=== PATIENT | male | born 1990 | race Caucasian/White ===

== ENCOUNTER 2018-02-01 10:56 | Emergency (ER) | payer OTHER ==
[2018-02-01] MEDS ORDERED: ANUSOL HC CREAM 30GM TOP (12:15)
[2018-02-01] MEDS: HYDROCORTISONE 2.5% 20GM OINTMENT TOP (12:26)
== END 2018-02-01 12:36 | disposition left against medical advice (07) ==
LOC: M ED 10:56
DX: R07.89 Other chest pain (principal); T50.B15A Adverse effect of smallpox vaccines, initial encounter; L29.9 Pruritus, unspecified
CPT/HCPCS: 99281

== ENCOUNTER 2018-06-15 18:18 | Emergency (ER) | payer OTHER ==
[2018-06-15] MEDS ORDERED: ACETAMINOPHEN 325 MG TAB PO ONE (19:30)
--- NOTE | 2018-06-15 19:33 | REP ---
Chest x-ray: Two views. History: Shortness of breath. Comparison study: No comparison study. Findings: The lungs are well inflated and free of infiltrate. The pleural angles are sharp. The heart size is normal. Pulmonary vasculature is not increased. No significant bony abnormality is seen. EKG monitoring electrodes are seen. Impression: Negative chest x-ray. Electronically Signed by Radames Teresa MD 06/15/2018 07:37 P
[2018-06-15] MEDS ORDERED: SILVER SULFADIAZINE 1% CR 50 GM JAR TOP ONE (20:00)
[2018-06-15 20:15] VITALS: BP 134/63
[2018-06-15] MEDS ORDERED: SILV1CRE60 TOP (20:23)
== END 2018-06-15 20:37 | disposition home or self-care (01) ==
LOC: M ED 18:18 → EDBD 18:18 → M ED 20:37
DX: T23.102A Burn of first degree of left hand, unspecified site, initial encounter (principal); T23.101A Burn of first degree of right hand, unspecified site, initial encounter; J70.5 Respiratory conditions due to smoke inhalation; V48.5XXA Car driver injured in noncollision transport accident in traffic accident, initial encounter; Y92.89 Other specified places as the place of occurrence of the external cause